=== PATIENT | female | born 1995 | race Caucasian/White ===

== ENCOUNTER 2017-10-12 18:44 | Emergency (ER) | payer SELFPAY ==
[~2017-10-12 18:44] MED LIST: ISOVUE-370 76%-LOCM 1 ML ONE
[2017-10-12] MEDS ORDERED: Acetaminophen 500 MG TAB ONE (19:40)
[2017-10-12 20:06] LABS: #Basophils 0.1 thou/uL (0.0-0.2); #Eosinphils 0.1 thou/uL (0.0-0.7); #Lymphocytes 3.8 thou/uL (1.20-3.40); #Monocytes 0.6 thou/uL (0.11-0.59); #Neutrophils 4.4 thou/uL (1.40-6.50); %Basophils 0.7 % (0.0-1.0); %Eosinophils 1.7 % (0.0-10.0); %Lymphocytes 42.7 % (21.0-51.0); %Monocytes 6.4 % (0.0-10.0); %Neutrophils 48.6 % (42.0-75.0); Hemoglobin 16.5 g/dL (12.0-16.0); Mean Corpuscular HGB CONC 34.4 g/dL (32.0-36.0); Mean Corpuscular Hemoglobin 30.7 pg (27.0-31.0); Mean Corpuscular Volume 89.3 fl (81.0-99.0); Mean Platelet Volume 6.8 fL (7.4-10.4); Platelet Count 351 thou/uL (130-400); RBC Distribution Width 10.7 % (11.5-14.5); Red Blood Cell (RBC) Count 5.37 mill/uL (4.20-5.40)
[2017-10-12 20:20] LABS: Bilirubin Negative (Negative); Blood, Urine Negative (Negative); Clarity CLOUDY (Clear); Glucose, Urine (Dipstick) Negative (Negative); Leukocyte Trace (Negative); Nitrite Negative (Negative); Pregnancy Test - Urine (BHCG) Negative (Negative); Pregu Control Background? CLEAR/WHITE (CLR/WHITE); Pregu Control Bar Appear? YES (CONTROL BAR); Protein, Urine (Dipstick) Negative (Neg-Trace); Urobilinogen 0.2 mg/dL (0.2-1.0); pH, Urine 7.5 (5.0-9.0)
[2017-10-12 20:21] LABS: Bacteria/HPF None Seen HPF (None Seen); Hyaline Casts/LPF 0-3 HYALINE CAST LPF (0-3 Hyaline); Squamous Epithelial 0-3 HPF (0-3)
[2017-10-12 20:32] LABS: ALT (SGPT) 13 U/L (8-55); AST (SGOT) 15 U/L (5-34); Albumin 4.6 g/dL (3.5-5.0); Alkaline Phosphatase 72 U/L (40-150); Anion Gap 16 mmol/L (10-20); BUN (Urea Nitrogen) 11 mg/dL (7.0-18.7); Bilirubin, Total 0.3 mg/dL (0.2-1.2); CRP (Inflammatory) 1.07 mg/dL (= or < 0.5); Calc. Creatinine Clearance 0 mL/min (70-130); Carbon Dioxide 23 mmol/L (22-29); Chloride 104 mmol/L (98-107); Estimated GFR-MDRD Greater than 90; Globulin 3.8 g/dL (2.4-3.5); Glucose 79 mg/dL (70-105); Potassium 3.9 mmol/L (3.5-5.1); Protein, Total 8.4 g/dL (6.0-8.3); Sodium 139 mmol/L (136-145)
--- NOTE | 2017-10-12 20:55 | CT ---
CT ABDOMEN AND PELVIS WITH IV CONTRAST: 10/12/2017 HISTORY: Abdominal pain and diarrhea, which started this morning. Nausea. COMPARISON: 05/07/2012 FINDINGS: A few punctate calcified granulomata are again seen in the spleen. The lung bases, liver, pancreas, bilateral adrenal glands, kidneys, abdominal aorta, urinary bladder, uterus, and adnexal structures have a normal CT appearance. There is a normal caliber appendix, whi ch is small in length. Loops of small bowel are normal in caliber. There is no free fluid, fluid collection, or lymphadenopathy seen in the abdomen or pelvis. IMPRESSION: No acute findings in the abdomen or pelvis. POS: [facility]
[2017-10-12] MEDS ORDERED: Ciprofloxacin 500 MG TAB ONE (21:18)
[2017-10-12] MEDS ORDERED: Ketorolac Tromethamine 30 MG/ML VIAL ONE (21:18)
[2017-10-12] MEDS ORDERED: Lidocaine 1% PF 5 ML VIAL ONE (21:40)
[2017-10-12] MEDS ORDERED: cefTRIAXone\\ROCEPHIN 250 MG VIAL ONE (21:40)
[2017-10-12] MEDS ORDERED: Doxycycline 100 MG CAP PO SCH (22:00)
--- NOTE | 2017-10-12 22:41 | ULT ---
PELVIC ULTRASOUND: 10/12/2017 HISTORY: Right-sided adnexal tenderness and vaginal discharge. TECHNIQUE: Multiple endovaginal sonographic images of the pelvis are obtained. Transabdominal imaging was not p erformed. FINDINGS: The uterus demonstrates a normal sonographic appearance and measures 7.8 cm x 2.8 cm x 4 cm. The end ometrial stripe measures 0.2 cm in thickness, which is within normal limits. No fluid or fluid colle ction is seen in the endometrial canal. The ovaries are visualized bilaterally and demonstrate a normal sonographic appearance. The right ov keara measures 3 cm x 1.8 cm x 1.7 cm with the left ovary measuring 2.2 cm x 1.7 cm x 1.6 cm. Doppler evaluation of each ovary with spectral analysis and color-flow evaluation demonstrates arteri al and venous flow. No free fluid is seen in the cul-de-sac. IMPRESSION: Normal appearing uterus and bilateral ovaries. POS: [facility]
[2017-10-13 22:22] LABS: Chlamydia by PCR Not Detected (NotDetected); GC by PCR Not Detected (NotDetected)
== END 2017-10-12 22:40 | disposition short-term general hospital (02) ==
LOC: ERS 18:44
DX: N12 Tubulo-interstitial nephritis, not specified as acute or chronic; N73.9 Female pelvic inflammatory disease, unspecified; Z79.899 Other long term (current) drug therapy
CPT/HCPCS: 74177; 76856; 80053; 81003; 81015; 81025; 83605; 85025; 85652; 86140; 87086; 87480; 87491; 87510; 87591; 87660; 96361; 96372; 96374; J0696; J1885; J2001